=== PATIENT | female | born 1955 | race Caucasian/White ===

== ENCOUNTER 2021-07-16 13:11 | Outpatient (CLI) | payer MEDICARE, OTHER ==
[~2021-07-16 13:11] MED LIST: Magnevist 469MG/ML 20 ML VIAL ONE
== END 2021-07-16 13:12 | disposition home or self-care (01) ==
LOC: MRI 13:11
PROVIDERS: ATTEND Otolaryngology Otolaryngic Allergy
DX: Z12.31 Encounter for screening mammogram for malignant neoplasm of breast (principal); H91.8X2 Other specified hearing loss, left ear; R42 Dizziness and giddiness; I67.82 Cerebral ischemia; Z80.3 Family history of malignant neoplasm of breast
CPT/HCPCS: 70553; 77063; 77067; A9579

== ENCOUNTER 2022-01-27 10:32 | Outpatient (CLI) | payer MEDICARE | END 2022-01-27 10:33 | disposition home or self-care (01) | LOC: BICMAMMO 10:32 | PROVIDERS: ATTEND Family Medicine | DX: R92.1 Mammographic calcification found on diagnostic imaging of breast (principal) | CPT/HCPCS: 77065; G0279 ==

== ENCOUNTER 2022-06-14 17:53 | Inpatient (IN) | payer OTHER, MEDICARE ==
[~2022-06-14 17:53] MED LIST changes: +Iopamidol-370 76% 500 ML 1 ML ONE; -Magnevist 469MG/ML 20 ML VIAL ONE
[2022-06-14 18:13] LABS: #Eosinphils 0.2 thou/uL (0.0-0.7); #Lymphocytes 3.1 thou/uL (1.20-3.40); #Monocytes 1.1 thou/uL (0.11-0.59); #Neutrophils 12.6 thou/uL (1.40-6.50); %Basophils 0.2 % (0.0-1.0); %Eosinophils 1.3 % (0.0-10.0); %Lymphocytes 17.9 % (21.0-51.0); %Monocytes 6.6 % (0.0-10.0); %Neutrophils 73.9 % (42.0-75.0); Hemoglobin 15.2 g/dL (12.0-16.0); Mean Corpuscular HGB CONC 35.7 g/dL (32.0-36.0); Mean Corpuscular Hemoglobin 33.8 pg (27.0-31.0); Mean Corpuscular Volume 94.6 fL (78.0-98.0); Mean Platelet Volume 7.3 fL (7.4-10.4); Platelet Count 288 thou/uL (130-400); RBC Distribution Width 11.9 % (11.5-14.5); Red Blood Cell (RBC) Count 4.49 mill/uL (4.20-5.40); White Blood Cell (WBC) Count 17.1 thou/uL (4.8-10.8)
[2022-06-14 18:37] LABS: ALT (SGPT) 59 U/L (8-55); AST (SGOT) 74 U/L (5-34); Albumin 3.9 g/dL (3.4-4.8); Alkaline Phosphatase 111 U/L (40-110); Anion Gap 18 mmol/L (10-20); BUN (Urea Nitrogen) 15 mg/dL (9.8-20.1); Bilirubin, Total 0.7 mg/dL (0.2-1.2); Calc. Creatinine Clearance 0 mL/min (70-130); Calcium 9.6 mg/dL (7.8-10.44); Carbon Dioxide 20 mmol/L (23-31); Chloride 106 mmol/L (98-107); Estimated GFR 89; Globulin 4.2 g/dL (2.4-3.5); Glucose 199 mg/dL (80-115); Lipase 179 U/L (8-78); Potassium 3.4 mmol/L (3.5-5.1); Protein, Total 8.1 g/dL (5.8-8.1); Sodium 141 mmol/L (136-145)
[2022-06-14] MEDS ORDERED: Fentanyl 100 MCG/2 ML VIAL ONE ×3 (19:12→21:12)
[2022-06-14] MEDS ORDERED: Lidocaine 1% PF 5 ML VIAL ONE (20:21)
[2022-06-14 20:26] LABS: Bacteria/HPF None Seen HPF (None Seen); Bilirubin Negative (Negative); Blood, Urine Trace (Negative); Clarity Clear (Clear); Glucose, Urine (Dipstick) 300 mg/dL (Negative); Ketone, Urine Negative (Negative); Leukocyte Negative Leu/uL (Negative); Nitrite Negative (Negative); Protein, Urine (Dipstick) 10 mg/dL (Neg-Trace); RBC/HPF 0-3 HPF (0-3); Squamous Epithelial 0-3 HPF (0-3); Urobilinogen Normal mg/dL (Less than 2); WBC/HPF 0-3 HPF (0-3)
[2022-06-14 20:27] LABS: Specific Gravity, Urine 1.048 (1.002-1.036)
[2022-06-14] MEDS ORDERED: Boostrix 0.5 ML (Tdap) VIAL ONE (20:39)
[2022-06-14] MEDS ORDERED: CEFAZOLIN 1 GM VIAL ONE (20:39)
[2022-06-14] MEDS ORDERED: Morphine 4 MG/ML VIAL SLOW IVP PRN (20:41)
[2022-06-14] MEDS ORDERED: Ondansetron PF 4 MG/2 ML Vial IVP PRN (20:41)
[2022-06-14] MEDS ORDERED: Dextrose 50% Abboject 50 ML SYRINGE SLOW IVP PRN (20:41)
[2022-06-14] MEDS ORDERED: Dextrose 5% in Water 1,000 ML IV PRN (20:41)
[2022-06-14] MEDS ORDERED: traMADol HCl 50 MG TAB PO PRN (20:44)
[2022-06-14] MEDS ORDERED: Sodium Chloride 0.9% 1,000 ML IV SCH (20:45)
[2022-06-14 20:49] LABS: Magnesium 1.9 mg/dL (1.6-2.6); Phosphorus 2.6 mg/dL (2.3-4.7)
[2022-06-14] MEDS ORDERED: Potassium Phosphate 30 MMOL in Sodium Chloride 0.9% 250 ML 250 ML IVPB SCH (21:00)
[2022-06-14] MEDS ORDERED: Ketamine 50 MG/ML (10ML VIAL) ONE (22:24)
[2022-06-14] MEDS ORDERED: Lorazepam (BATCHED) 2 MG/ML SYR ONE (22:44)
[2022-06-15] MEDS: Ibuprofen 200 MG TAB PO SCH ×4 (02:54→21:02)
[2022-06-15] MEDS: traMADol HCl 50 MG TAB PO SCH ×2 (02:55→05:18)
[2022-06-15] MEDS: Gabapentin 300 MG CAP PO SCH ×4 (03:12→21:05)
[2022-06-15] MEDS: Senokot S 8.6-50 MG TAB PO SCH ×3 (03:12→21:04)
[2022-06-15] MEDS: Famotidine 20 MG TAB PO SCH ×3 (03:12→21:05)
[2022-06-15 03:30] LABS: SARS-CoV-2 NAA Rapid Test Not Detected (NotDetected)
[2022-06-15 03:35] LABS: #Lymphocytes 1.2 thou/uL (1.20-3.40); #Neutrophils 6.2 thou/uL (1.40-6.50); %Basophils 0.2 % (0.0-1.0); %Eosinophils 0.2 % (0.0-10.0); %Lymphocytes 13.9 % (21.0-51.0); %Monocytes 11.5 % (0.0-10.0); %Neutrophils 74.2 % (42.0-75.0); Hemoglobin 12.6 g/dL (12.0-16.0); Mean Corpuscular HGB CONC 34.1 g/dL (32.0-36.0); Mean Corpuscular Hemoglobin 32.7 pg (27.0-31.0); Mean Corpuscular Volume 95.9 fL (78.0-98.0); Platelet Count 237 thou/uL (130-400); Red Blood Cell (RBC) Count 3.84 mill/uL (4.20-5.40); White Blood Cell (WBC) Count 8.4 thou/uL (4.8-10.8)
[2022-06-15 04:01] LABS: Anion Gap 15 mmol/L (10-20); BUN (Urea Nitrogen) 12 mg/dL (9.8-20.1); Calc. Creatinine Clearance 97 mL/min (70-130); Calcium 8.7 mg/dL (7.8-10.44); Carbon Dioxide 20 mmol/L (23-31); Chloride 109 mmol/L (98-107); Estimated GFR 97; Glucose 168 mg/dL (80-115); Magnesium 1.9 mg/dL (1.6-2.6); Phosphorus 3.5 mg/dL (2.3-4.7); Potassium 4.2 mmol/L (3.5-5.1); Sodium 140 mmol/L (136-145)
[2022-06-15] MEDS: Polyethylene Glycol 3350 17 GM Packet PO SCH (08:23)
[2022-06-15] MEDS ORDERED: Acetaminophen 325 MG TAB PO SCH (12:00)
[2022-06-15] MEDS ORDERED: traMADol HCl 50 MG TAB PO PRN (12:39)
[2022-06-15] MEDS ORDERED: Clindamycin/D5W 900 MG in Premix Bag 1 BAG IVPB SCH (23:30)
[2022-06-16] MEDS: Ibuprofen 200 MG TAB PO SCH ×2 (05:03→18:10)
[2022-06-16 05:30] LABS: #Eosinphils 0.2 thou/uL (0.0-0.7); #Lymphocytes 1.9 thou/uL (1.20-3.40); #Monocytes 1.1 thou/uL (0.11-0.59); #Neutrophils 5.2 thou/uL (1.40-6.50); %Basophils 0.5 % (0.0-1.0); %Lymphocytes 22.9 % (21.0-51.0); %Neutrophils 61.6 % (42.0-75.0); Hemoglobin 11.3 g/dL (12.0-16.0); Mean Corpuscular HGB CONC 32.1 g/dL (32.0-36.0); Mean Corpuscular Hemoglobin 31.3 pg (27.0-31.0); Mean Corpuscular Volume 97.5 fL (78.0-98.0); Mean Platelet Volume 7.1 fL (7.4-10.4); Platelet Count 194 thou/uL (130-400); Red Blood Cell (RBC) Count 3.61 mill/uL (4.20-5.40); White Blood Cell (WBC) Count 8.4 thou/uL (4.8-10.8)
[2022-06-16 07:21] LABS: Anion Gap 13 mmol/L (10-20); BUN (Urea Nitrogen) 10 mg/dL (9.8-20.1); Calc. Creatinine Clearance 124 mL/min (70-130); Calcium 8.6 mg/dL (7.8-10.44); Carbon Dioxide 22 mmol/L (23-31); Chloride 109 mmol/L (98-107); Estimated GFR 103; Glucose 109 mg/dL (80-115); Magnesium 2.1 mg/dL (1.6-2.6); Potassium 3.7 mmol/L (3.5-5.1); Sodium 140 mmol/L (136-145)
[2022-06-16] MEDS ORDERED: Potassium Phosphate 15 MMOL in Sodium Chloride 0.9% 250 ML 250 ML IVPB SCH (10:00)
[2022-06-16] MEDS ORDERED: Fentanyl 100 MCG/2 ML VIAL ONE ×2 (10:48→15:09)
[2022-06-16] MEDS ORDERED: Bupivacaine PF 0.5% 30 ML VIAL ONE (11:26)
[2022-06-16] MEDS ORDERED: Neomycin-Polymyxin 1 ML AMP ONE (11:26)
[2022-06-16] MEDS ORDERED: Midazolam HCl 2 mg/2 ml Vial ONE (11:35)
[2022-06-16] MEDS ORDERED: fentaNYL Citrate/PF 100 MCG/2 ML SYRINGE ONE ×2 (11:35→13:05)
[2022-06-16] MEDS ORDERED: Clindamycin/D5W 900 mg/50 ml Premix Bag ONE (11:45)
[2022-06-16] MEDS ORDERED: Phenylephrine 10 MG/ML VIAL ONE (12:00)
[2022-06-16] MEDS ORDERED: Lidocaine 1% PF 5 ML VIAL ONE (12:00)
[2022-06-16] MEDS ORDERED: Dexamethasone 20 MG/5 ML VIAL ONE (12:00)
[2022-06-16] MEDS ORDERED: Ondansetron PF 4 MG/2 ML Vial ONE (12:00)
[2022-06-16] MEDS ORDERED: Succinylcholine 200 MG/10 ml SYRINGE FS ONE (12:00)
[2022-06-16] MEDS ORDERED: PROPOFOL 200 MG/20 ML VIAL ONE (12:00)
[2022-06-16] MEDS ORDERED: Promethazine HCl 25 MG/ML VIAL IVPB PRN (14:41)
[2022-06-16] MEDS ORDERED: Ondansetron HCl/PF 4 MG/2 ML Vial IVP PRN (14:41)
[2022-06-16] MEDS ORDERED: Promethazine HCl 25 MG/ML VIAL IM PRN (14:41)
[2022-06-16] MEDS ORDERED: Morphine 2 MG/ML VIAL SLOW IVP PRN (16:41)
[2022-06-16] MEDS ORDERED: NS 0.9% w/ 20 MEQ KCL 1,000 ML/1,000 ML BAG IV SCH (17:45)
[2022-06-16] MEDS: Gabapentin 300 MG CAP PO SCH ×2 (18:08→20:40)
[2022-06-16] MEDS: Famotidine 20 MG TAB PO SCH ×2 (18:08→20:39)
[2022-06-16] MEDS: Senokot S 8.6-50 MG TAB PO SCH ×2 (18:09→20:39)
[2022-06-16] MEDS: Polyethylene Glycol 3350 17 GM Packet PO SCH (18:09)
[2022-06-16] MEDS: CEFAZOLIN 1 GM in Sodium Chloride 0.9% 100 ML IVPB SCH (18:10)
[2022-06-16] MEDS: Cyclobenzaprine 10 MG TAB PO PRN (20:39)
[2022-06-16] MEDS: HYDROcodone/Acetaminophen 7.5/325 mg Tablet PO PRN (20:39)
[2022-06-17] MEDS: Ibuprofen 200 MG TAB PO SCH ×4 (00:26→21:57)
[2022-06-17] MEDS: CEFAZOLIN 1 GM in Sodium Chloride 0.9% 100 ML IVPB SCH ×2 (00:27→08:55)
[2022-06-17] MEDS: HYDROcodone/Acetaminophen 7.5/325 mg Tablet PO PRN (03:15)
[2022-06-17 06:55] LABS: Anion Gap 15 mmol/L (10-20); BUN (Urea Nitrogen) 10 mg/dL (9.8-20.1); Calc. Creatinine Clearance 107 mL/min (70-130); Calcium 8.7 mg/dL (7.8-10.44); Carbon Dioxide 23 mmol/L (23-31); Chloride 108 mmol/L (98-107); Estimated GFR 101; Glucose 114 mg/dL (80-115); Magnesium 2.1 mg/dL (1.6-2.6); Potassium 4.6 mmol/L (3.5-5.1); Sodium 141 mmol/L (136-145)
[2022-06-17 07:08] LABS: #Lymphocytes 1.4 thou/uL (1.20-3.40); #Neutrophils 7.3 thou/uL (1.40-6.50); %Basophils 0.1 % (0.0-1.0); %Eosinophils 0.1 % (0.0-10.0); %Lymphocytes 14.7 % (21.0-51.0); %Monocytes 9.9 % (0.0-10.0); %Neutrophils 75.3 % (42.0-75.0); Mean Corpuscular HGB CONC 33.8 g/dL (32.0-36.0); Mean Corpuscular Hemoglobin 32.2 pg (27.0-31.0); Mean Corpuscular Volume 95.4 fL (78.0-98.0); Mean Platelet Volume 7.8 fL (7.4-10.4); Platelet Count 210 thou/uL (130-400); RBC Distribution Width 11.7 % (11.5-14.5); Red Blood Cell (RBC) Count 3.41 mill/uL (4.20-5.40); White Blood Cell (WBC) Count 9.7 thou/uL (4.8-10.8)
[2022-06-17] MEDS ORDERED: traMADol HCl 50 MG TAB PO PRN (08:36)
[2022-06-17] MEDS ORDERED: Acetaminophen 500 MG TAB PO SCH (08:45)
[2022-06-17] MEDS: traMADol HCl 50 MG TAB PO SCH ×3 (08:55→21:56)
[2022-06-17] MEDS: Senokot S 8.6-50 MG TAB PO SCH ×2 (08:56→21:56)
[2022-06-17] MEDS: Famotidine 20 MG TAB PO SCH ×2 (08:56→21:56)
[2022-06-17] MEDS: Polyethylene Glycol 3350 17 GM Packet PO SCH (08:56)
[2022-06-17] MEDS: Gabapentin 300 MG CAP PO SCH ×3 (08:56→21:58)
[2022-06-17] MEDS: Enoxaparin Sodium 30 MG/0.3 ML SYRINGE SC SCH (08:57)
[2022-06-17] MEDS: Cyclobenzaprine 10 MG TAB PO PRN (11:09)
[2022-06-17] MEDS: Acetaminophen 500 MG TAB PO SCH ×2 (11:09→17:00)
[2022-06-18] MEDS: Acetaminophen 500 MG TAB PO SCH ×4 (00:17→17:56)
[2022-06-18] MEDS: Cyclobenzaprine 10 MG TAB PO PRN ×2 (00:18→22:35)
[2022-06-18] MEDS: traMADol HCl 50 MG TAB PO SCH ×4 (03:21→21:33)
[2022-06-18] MEDS: Ibuprofen 200 MG TAB PO SCH ×3 (05:21→21:32)
[2022-06-18] MEDS: Senokot S 8.6-50 MG TAB PO SCH ×2 (10:18→21:33)
[2022-06-18] MEDS: Famotidine 20 MG TAB PO SCH ×2 (10:18→21:33)
[2022-06-18] MEDS: Polyethylene Glycol 3350 17 GM Packet PO SCH (10:18)
[2022-06-18] MEDS: Enoxaparin Sodium 30 MG/0.3 ML SYRINGE SC SCH (10:19)
[2022-06-18] MEDS: Gabapentin 300 MG CAP PO SCH ×3 (10:19→21:33)
[2022-06-18] MEDS: hydrALAZINE 20 MG/ML VIAL SLOW IVP PRN (11:36)
[2022-06-18] MEDS ORDERED: Dicyclomine 20 MG TAB PO PRN (12:33)
[2022-06-18] MEDS: Propranolol 10 MG TAB PO SCH ×2 (15:40→21:32)
[2022-06-19] MEDS: Acetaminophen 500 MG TAB PO SCH ×5 (00:42→23:51)
[2022-06-19] MEDS: traMADol HCl 50 MG TAB PO SCH ×4 (03:48→21:09)
[2022-06-19] MEDS: Ibuprofen 200 MG TAB PO SCH ×3 (05:49→21:10)
[2022-06-19] MEDS: Levothyroxine Sodium 75 MCG TAB PO SCH (05:49)
[2022-06-19] MEDS: Famotidine 20 MG TAB PO SCH ×2 (09:08→21:08)
[2022-06-19] MEDS: Enoxaparin Sodium 30 MG/0.3 ML SYRINGE SC SCH (09:08)
[2022-06-19] MEDS: Gabapentin 300 MG CAP PO SCH ×3 (09:08→21:08)
[2022-06-19] MEDS: PARoxetine 20 MG TAB PO SCH (09:09)
[2022-06-19] MEDS: Polyethylene Glycol 3350 17 GM Packet PO SCH (09:09)
[2022-06-19] MEDS: Senokot S 8.6-50 MG TAB PO SCH ×2 (09:09→21:09)
[2022-06-19] MEDS: Propranolol 10 MG TAB PO SCH ×3 (09:09→21:08)
[2022-06-20] MEDS: traMADol HCl 50 MG TAB PO SCH ×4 (03:12→21:37)
[2022-06-20] MEDS: Ibuprofen 200 MG TAB PO SCH ×3 (05:01→21:32)
[2022-06-20] MEDS: Acetaminophen 500 MG TAB PO SCH ×4 (05:02→23:41)
[2022-06-20] MEDS: Levothyroxine Sodium 75 MCG TAB PO SCH (05:02)
[2022-06-20] MEDS: Cyclobenzaprine 10 MG TAB PO PRN ×2 (05:12→21:31)
[2022-06-20] MEDS: hydrALAZINE 20 MG/ML VIAL SLOW IVP PRN (05:47)
[2022-06-20] MEDS: PARoxetine 20 MG TAB PO SCH (09:26)
[2022-06-20] MEDS: Famotidine 20 MG TAB PO SCH ×2 (09:26→21:32)
[2022-06-20] MEDS: Enoxaparin Sodium 40 MG/0.4 ML SYRINGE SC SCH (09:26)
[2022-06-20] MEDS: Senokot S 8.6-50 MG TAB PO SCH ×2 (09:26→21:35)
[2022-06-20] MEDS: Gabapentin 300 MG CAP PO SCH ×3 (09:26→21:33)
[2022-06-20] MEDS: Propranolol 10 MG TAB PO SCH ×3 (09:27→21:33)
[2022-06-20] MEDS: Polyethylene Glycol 3350 17 GM Packet PO SCH (09:27)
[2022-06-20] MEDS ORDERED: Ketorolac Tromethamine 30 MG/ML VIAL IVP SCH (11:00)
[2022-06-21] MEDS: traMADol HCl 50 MG TAB PO SCH ×4 (03:51→20:43)
[2022-06-21] MEDS: Ibuprofen 200 MG TAB PO SCH ×3 (05:28→20:47)
[2022-06-21] MEDS: Acetaminophen 500 MG TAB PO SCH ×3 (05:29→17:28)
[2022-06-21] MEDS: Levothyroxine Sodium 75 MCG TAB PO SCH (05:29)
[2022-06-21] MEDS: Propranolol 10 MG TAB PO SCH ×3 (08:58→20:44)
[2022-06-21] MEDS: Gabapentin 300 MG CAP PO SCH ×3 (08:58→20:42)
[2022-06-21] MEDS: Senokot S 8.6-50 MG TAB PO SCH ×2 (08:58→20:48)
[2022-06-21] MEDS: Famotidine 20 MG TAB PO SCH ×2 (08:58→20:42)
[2022-06-21] MEDS: PARoxetine 20 MG TAB PO SCH (08:58)
[2022-06-21] MEDS: Enoxaparin Sodium 40 MG/0.4 ML SYRINGE SC SCH (08:58)
[2022-06-21] MEDS: Polyethylene Glycol 3350 17 GM Packet PO SCH (08:59)
[2022-06-21] MEDS: Cyclobenzaprine 10 MG TAB PO PRN (20:42)
[2022-06-22] MEDS: Acetaminophen 500 MG TAB PO SCH ×4 (00:19→17:59)
[2022-06-22] MEDS: traMADol HCl 50 MG TAB PO SCH ×4 (02:43→22:08)
[2022-06-22] MEDS: Ibuprofen 200 MG TAB PO SCH ×3 (05:58→22:09)
[2022-06-22] MEDS: Levothyroxine Sodium 75 MCG TAB PO SCH (05:58)
[2022-06-22] MEDS: Propranolol 10 MG TAB PO SCH ×3 (09:03→22:25)
[2022-06-22] MEDS: PARoxetine 20 MG TAB PO SCH (09:04)
[2022-06-22] MEDS: Gabapentin 300 MG CAP PO SCH ×3 (09:04→22:06)
[2022-06-22] MEDS: Famotidine 20 MG TAB PO SCH ×2 (09:04→22:06)
[2022-06-22] MEDS: Enoxaparin Sodium 40 MG/0.4 ML SYRINGE SC SCH (09:06)
[2022-06-22] MEDS: Senokot S 8.6-50 MG TAB PO SCH ×2 (09:18→22:08)
[2022-06-22] MEDS: Polyethylene Glycol 3350 17 GM Packet PO SCH (09:18)
[2022-06-22] MEDS: Cyclobenzaprine 10 MG TAB PO PRN (22:09)
[2022-06-23] MEDS: Acetaminophen 500 MG TAB PO SCH ×4 (00:02→18:37)
[2022-06-23] MEDS: traMADol HCl 50 MG TAB PO SCH ×4 (03:54→22:20)
[2022-06-23] MEDS: Levothyroxine Sodium 75 MCG TAB PO SCH (06:04)
[2022-06-23] MEDS: Ibuprofen 200 MG TAB PO SCH ×3 (06:04→22:22)
[2022-06-23] MEDS: Senokot S 8.6-50 MG TAB PO SCH ×2 (09:23→22:20)
[2022-06-23] MEDS: Gabapentin 300 MG CAP PO SCH ×3 (09:24→22:19)
[2022-06-23] MEDS: PARoxetine 20 MG TAB PO SCH (09:26)
[2022-06-23] MEDS: Propranolol 10 MG TAB PO SCH ×3 (09:26→22:20)
[2022-06-23] MEDS: Enoxaparin Sodium 40 MG/0.4 ML SYRINGE SC SCH (09:26)
[2022-06-23] MEDS: Famotidine 20 MG TAB PO SCH ×2 (09:26→22:19)
[2022-06-23] MEDS: Polyethylene Glycol 3350 17 GM Packet PO SCH (09:27)
[2022-06-23] MEDS: Cyclobenzaprine 10 MG TAB PO PRN (22:20)
[2022-06-24] MEDS: Acetaminophen 500 MG TAB PO SCH ×5 (00:50→23:56)
[2022-06-24] MEDS: traMADol HCl 50 MG TAB PO SCH ×4 (04:33→20:41)
[2022-06-24] MEDS: Levothyroxine Sodium 75 MCG TAB PO SCH ×2 (06:20→06:22)
[2022-06-24] MEDS: Ibuprofen 200 MG TAB PO SCH ×3 (06:20→22:10)
[2022-06-24] MEDS: PARoxetine 20 MG TAB PO SCH (08:57)
[2022-06-24] MEDS: Gabapentin 300 MG CAP PO SCH ×3 (08:58→20:41)
[2022-06-24] MEDS: Senokot S 8.6-50 MG TAB PO SCH ×2 (08:58→20:42)
[2022-06-24] MEDS: Enoxaparin Sodium 40 MG/0.4 ML SYRINGE SC SCH (08:58)
[2022-06-24] MEDS: Propranolol 10 MG TAB PO SCH ×3 (08:58→20:42)
[2022-06-24] MEDS: Famotidine 20 MG TAB PO SCH ×2 (08:58→20:41)
[2022-06-24] MEDS: Polyethylene Glycol 3350 17 GM Packet PO SCH (08:58)
[2022-06-24] MEDS: guaiFENesin ER 600 MG TAB PO SCH (20:42)
[2022-06-24] MEDS: Pseudoephedrine HCl 30 MG TAB PO SCH (22:10)
[2022-06-24] MEDS: Cyclobenzaprine 10 MG TAB PO PRN (22:19)
[2022-06-25] MEDS: traMADol HCl 50 MG TAB PO SCH ×4 (03:49→21:17)
[2022-06-25] MEDS: Ibuprofen 200 MG TAB PO SCH ×3 (06:06→21:18)
[2022-06-25] MEDS: Acetaminophen 500 MG TAB PO SCH ×3 (06:07→17:23)
[2022-06-25] MEDS: guaiFENesin ER 600 MG TAB PO SCH ×2 (08:36→21:17)
[2022-06-25] MEDS: Senokot S 8.6-50 MG TAB PO SCH ×2 (08:36→21:17)
[2022-06-25] MEDS: Enoxaparin Sodium 40 MG/0.4 ML SYRINGE SC SCH (08:36)
[2022-06-25] MEDS: Propranolol 10 MG TAB PO SCH ×3 (08:36→21:17)
[2022-06-25] MEDS: Pseudoephedrine HCl 30 MG TAB PO SCH ×2 (08:36→21:17)
[2022-06-25] MEDS: PARoxetine 20 MG TAB PO SCH (08:36)
[2022-06-25] MEDS: Gabapentin 300 MG CAP PO SCH ×3 (08:36→21:16)
[2022-06-25] MEDS: Famotidine 20 MG TAB PO SCH ×2 (08:36→21:16)
[2022-06-25] MEDS: Polyethylene Glycol 3350 17 GM Packet PO SCH (08:37)
[2022-06-25] MEDS: Cyclobenzaprine 10 MG TAB PO PRN (16:06)
[2022-06-26] MEDS: Acetaminophen 500 MG TAB PO SCH ×4 (00:55→18:48)
[2022-06-26] MEDS: traMADol HCl 50 MG TAB PO SCH ×4 (02:42→20:33)
[2022-06-26] MEDS: Cyclobenzaprine 10 MG TAB PO PRN ×2 (02:44→10:21)
[2022-06-26] MEDS: Levothyroxine Sodium 75 MCG TAB PO SCH (06:16)
[2022-06-26] MEDS: Ibuprofen 200 MG TAB PO SCH ×3 (06:16→20:33)
[2022-06-26] MEDS: Polyethylene Glycol 3350 17 GM Packet PO SCH (10:21)
[2022-06-26] MEDS: Senokot S 8.6-50 MG TAB PO SCH ×2 (10:21→20:35)
[2022-06-26] MEDS: Pseudoephedrine HCl 30 MG TAB PO SCH ×2 (10:22→20:35)
[2022-06-26] MEDS: PARoxetine 20 MG TAB PO SCH (10:22)
[2022-06-26] MEDS: guaiFENesin ER 600 MG TAB PO SCH ×2 (10:22→20:34)
[2022-06-26] MEDS: Gabapentin 300 MG CAP PO SCH ×3 (10:22→20:34)
[2022-06-26] MEDS: Famotidine 20 MG TAB PO SCH ×2 (10:22→20:34)
[2022-06-26] MEDS: Enoxaparin Sodium 40 MG/0.4 ML SYRINGE SC SCH (10:23)
[2022-06-26] MEDS: Propranolol 10 MG TAB PO SCH ×3 (10:23→20:34)
[2022-06-27] MEDS: Acetaminophen 500 MG TAB PO SCH ×5 (00:43→23:55)
[2022-06-27] MEDS: traMADol HCl 50 MG TAB PO SCH ×4 (02:39→20:54)
[2022-06-27] MEDS: Cyclobenzaprine 10 MG TAB PO PRN ×3 (02:40→19:38)
[2022-06-27] MEDS: Ibuprofen 200 MG TAB PO SCH (05:47)
[2022-06-27] MEDS: Levothyroxine Sodium 75 MCG TAB PO SCH (05:47)
[2022-06-27] MEDS: Famotidine 20 MG TAB PO SCH ×2 (09:48→20:50)
[2022-06-27] MEDS: Polyethylene Glycol 3350 17 GM Packet PO SCH (09:48)
[2022-06-27] MEDS: Gabapentin 300 MG CAP PO SCH ×3 (09:48→20:50)
[2022-06-27] MEDS: guaiFENesin ER 600 MG TAB PO SCH ×2 (09:49→20:50)
[2022-06-27] MEDS: Senokot S 8.6-50 MG TAB PO SCH ×2 (09:49→20:50)
[2022-06-27] MEDS: PARoxetine 20 MG TAB PO SCH (09:49)
[2022-06-27] MEDS: Propranolol 10 MG TAB PO SCH ×3 (09:50→20:50)
[2022-06-27] MEDS: Pseudoephedrine HCl 30 MG TAB PO SCH ×2 (09:50→20:50)
[2022-06-27] MEDS: Enoxaparin Sodium 40 MG/0.4 ML SYRINGE SC SCH (09:50)
[2022-06-27] MEDS: Ibuprofen 200 MG TAB PO PRN (18:26)
[2022-06-28] MEDS: traMADol HCl 50 MG TAB PO SCH ×4 (03:02→21:35)
[2022-06-28] MEDS: Acetaminophen 500 MG TAB PO SCH ×3 (05:29→17:03)
[2022-06-28] MEDS: Levothyroxine Sodium 75 MCG TAB PO SCH (05:29)
[2022-06-28] MEDS: Cyclobenzaprine 10 MG TAB PO PRN ×2 (05:34→21:34)
[2022-06-28] MEDS: Enoxaparin Sodium 40 MG/0.4 ML SYRINGE SC SCH (09:05)
[2022-06-28] MEDS: Famotidine 20 MG TAB PO SCH ×2 (09:05→21:35)
[2022-06-28] MEDS: Gabapentin 300 MG CAP PO SCH ×3 (09:06→21:34)
[2022-06-28] MEDS: guaiFENesin ER 600 MG TAB PO SCH ×2 (09:07→21:34)
[2022-06-28] MEDS: PARoxetine 20 MG TAB PO SCH (09:07)
[2022-06-28] MEDS: Polyethylene Glycol 3350 17 GM Packet PO SCH (09:08)
[2022-06-28] MEDS: Propranolol 10 MG TAB PO SCH ×3 (09:08→21:35)
[2022-06-28] MEDS: Senokot S 8.6-50 MG TAB PO SCH (09:09)
[2022-06-28] MEDS: Pseudoephedrine HCl 30 MG TAB PO SCH ×2 (09:09→21:33)
[2022-06-28] MEDS: Ibuprofen 200 MG TAB PO PRN ×2 (09:17→17:04)
[2022-06-29] MEDS: Senokot S 8.6-50 MG TAB PO SCH ×2 (00:33→08:40)
[2022-06-29] MEDS: Ibuprofen 200 MG TAB PO PRN ×2 (00:37→11:15)
[2022-06-29] MEDS: Acetaminophen 500 MG TAB PO SCH ×3 (00:37→11:12)
[2022-06-29] MEDS: traMADol HCl 50 MG TAB PO SCH ×3 (04:03→15:39)
[2022-06-29] MEDS: Levothyroxine Sodium 75 MCG TAB PO SCH (05:53)
[2022-06-29] MEDS: Cyclobenzaprine 10 MG TAB PO PRN (05:53)
[2022-06-29 08:12] VITALS: TEMP 97.6
[2022-06-29] MEDS: Enoxaparin Sodium 40 MG/0.4 ML SYRINGE SC SCH (08:35)
[2022-06-29] MEDS: Famotidine 20 MG TAB PO SCH (08:36)
[2022-06-29] MEDS: Gabapentin 300 MG CAP PO SCH ×2 (08:36→15:40)
[2022-06-29] MEDS: guaiFENesin ER 600 MG TAB PO SCH (08:37)
[2022-06-29] MEDS: PARoxetine 20 MG TAB PO SCH (08:37)
[2022-06-29] MEDS: Pseudoephedrine HCl 30 MG TAB PO SCH (08:38)
[2022-06-29] MEDS: Polyethylene Glycol 3350 17 GM Packet PO SCH (08:38)
[2022-06-29] MEDS: Propranolol 10 MG TAB PO SCH ×2 (08:38→15:39)
[2022-06-29 09:24] VITALS: BMI 26.7
[2022-06-29 16:44] VITALS: BP 138/76
== END 2022-06-29 16:33 | DRG 511 ==
LOC: ERS 17:53 → UNDOADMIN 20:45 → CCU 20:45 → SURG B 06-15 13:53
PROVIDERS: ADMIT Surgery; ATTEND Surgery
PROC: 0PSJXZZ Reposition Left Radius, External Approach (ICD-10-PCS; 2022-06-14)
PROC: 0PSJ04Z Reposition Left Radius with Internal Fixation Device, Open Approach (ICD-10-PCS; principal; 2022-06-26)
PROC: 0PSQ04Z Reposition Left Metacarpal with Internal Fixation Device, Open Approach (ICD-10-PCS; 2022-06-26)
PROC: 0PUJ0KZ Supplement Left Radius with Nonautologous Tissue Substitute, Open Approach (ICD-10-PCS; 2022-06-26)
DX: S52.572A Other intraarticular fracture of lower end of left radius, initial encounter for closed fracture (principal); Z23 Encounter for immunization; Z20.822 Contact with and (suspected) exposure to COVID-19; S06.0X9A Concussion with loss of consciousness of unspecified duration, initial encounter; S22.020A Wedge compression fracture of second thoracic vertebra, initial encounter for closed fracture; S22.32XA Fracture of one rib, left side, initial encounter for closed fracture; S12.600A Unspecified displaced fracture of seventh cervical vertebra, initial encounter for closed fracture; S62.391A Other fracture of second metacarpal bone, left hand, initial encounter for closed fracture; E03.9 Hypothyroidism, unspecified; I10 Essential (primary) hypertension; F32.A Depression, unspecified; M25.422 Effusion, left elbow; R40.2362 Coma scale, best motor response, obeys commands, at arrival to emergency department; R40.2142 Coma scale, eyes open, spontaneous, at arrival to emergency department; R40.2252 Coma scale, best verbal response, oriented, at arrival to emergency department; K90.0 Celiac disease; E87.6 Hypokalemia; H66.91 Otitis media, unspecified, right ear; E83.42 Hypomagnesemia; V43.52XA Car driver injured in collision with other type car in traffic accident, initial encounter; Y92.410 Unspecified street and highway as the place of occurrence of the external cause; Z88.6 Allergy status to analgesic agent; Z88.0 Allergy status to penicillin; Z90.49 Acquired absence of other specified parts of digestive tract; Z98.890 Other specified postprocedural states; Z79.890 Hormone replacement therapy; Z79.899 Other long term (current) drug therapy
CPT/HCPCS: 25605; 36415; 70450; 70498; 71260; 72125; 74177; 76000; 80048; 80053; 81003; 81015; 83690; 83735; 84100; 84146; 84484; 85025; 90471; 90715; 93005; 94760; 96365; 96375; 96376; 99152; C1713; C1894; G0390; J0360; J0690; J1100; J1650; J1885; J2060; J2250; J2270; J2370; J2405; J2704; J3010; J3480; J3490; J7050; L0200; Q9967; S0020; U0002; U0003; U0005

== ENCOUNTER 2022-08-10 14:16 | Emergency (ER) | payer MEDICARE ==
[2022-08-10] MEDS ORDERED: Cyclobenzaprine 10 MG TAB ONE (16:06)
[2022-08-10] MEDS ORDERED: traMADol HCl 50 MG TAB ONE (16:06)
== END 2022-08-10 18:26 | disposition home or self-care (01) ==
LOC: ERS 14:16
DX: S12.600A Unspecified displaced fracture of seventh cervical vertebra, initial encounter for closed fracture (principal); S22.020A Wedge compression fracture of second thoracic vertebra, initial encounter for closed fracture; S22.039A Unspecified fracture of third thoracic vertebra, initial encounter for closed fracture; S50.312A Abrasion of left elbow, initial encounter; S80.211A Abrasion, right knee, initial encounter; I10 Essential (primary) hypertension; E03.9 Hypothyroidism, unspecified; W10.9XXA Fall (on) (from) unspecified stairs and steps, initial encounter
CPT/HCPCS: 70450; 72125

== ENCOUNTER 2022-08-11 13:18 | Outpatient (CLI) | payer MEDICARE | END 2022-08-11 13:19 | disposition home or self-care (01) | LOC: BICMRI 13:18 | PROVIDERS: ATTEND Surgery | DX: S12.9XXA Fracture of neck, unspecified, initial encounter (principal); M48.02 Spinal stenosis, cervical region | CPT/HCPCS: 72141 ==

== ENCOUNTER 2025-03-22 13:25 | Outpatient (CLI) | payer MEDICARE | END 2025-03-22 13:26 | disposition home or self-care (01) | LOC: BICMAMMO 13:25 | PROVIDERS: ATTEND Nurse Practitioner Family | DX: R92.1 Mammographic calcification found on diagnostic imaging of breast (principal) | CPT/HCPCS: 77066; G0279 ==